=== PATIENT | male | born 1975 | race Two or more races ===

== ENCOUNTER 2023-05-29 20:28 | Emergency (ER) | payer BC, OTHER ==
[~2023-05-29] VITALS: Ht 188 cm; Wt 132.3 kg
[2023-05-30] MEDS ORDERED: AMPICILLIN & SULBACTAM SODIUM 3 GM in SODIUM CHL 0.9% 100 ML IV ONE (00:15)
[2023-05-30 01:30] VITALS: BP 132/84; PULSE 89; RESP 19; TEMP 97.8
[2023-05-30] MEDS ORDERED: AUG875T PO (01:49)
[2023-05-30] MEDS: PIPERACILLIN-TAZO 4.5GM 100 ML IV ONE (01:52)
[2023-05-30 02:12] VITALS: O2SAT 97
== END 2023-05-30 03:33 | disposition home or self-care (01) ==
LOC: ER 20:28
DX: S62.634A Displaced fracture of distal phalanx of right ring finger, initial encounter for closed fracture (principal); S61.214A Laceration without foreign body of right ring finger without damage to nail, initial encounter; Z79.899 Other long term (current) drug therapy; W54.0XXA Bitten by dog, initial encounter; Y93.89 Activity, other specified; Y92.89 Other specified places as the place of occurrence of the external cause; Y99.8 Other external cause status
CPT/HCPCS: 12001; 29130; 73130; 96365; 99284; J2543